=== PATIENT | male | born 1960 | race Caucasian/White ===

== ENCOUNTER 2017-08-06 03:14 | Emergency (ER) | payer OTHER ==
[~2017-08-06] VITALS: Ht 180.3 cm; Wt 35.4 kg
[2017-08-06] MEDS ORDERED: ATRIPLA TABLET1 EACH (03:19)
== END 2017-08-06 12:38 | disposition home or self-care (01) ==
LOC: ER 03:14 → CPU-OBS 03:18 → ER 03:18
DX: R07.89 Other chest pain (principal); R25.1 Tremor, unspecified
CPT/HCPCS: G0378; G0379; 93005; 70450

== ENCOUNTER 2018-03-12 09:15 | Outpatient (CLI) | payer OTHER ==
[~2018-03-12 09:15] MED LIST: ATRIPLA TABLET1 EACH
== END 2018-03-12 09:36 | disposition home or self-care (01) ==
LOC: NUCLEAR 09:15
DX: R07.89 Other chest pain (principal); I44.7 Left bundle-branch block, unspecified

== ENCOUNTER 2019-01-07 06:00 | Day surgery (SDC) | payer OTHER ==
[~2019-01-07 06:00] MED LIST changes: +CRESTOR20 MG
== END 2019-01-07 13:50 | disposition home or self-care (01) ==
LOC: CIR.AMB 06:00
DX: K40.90 Unilateral inguinal hernia, without obstruction or gangrene, not specified as recurrent (principal)

== ENCOUNTER → 2019-04-30 | Outpatient (CLI) | payer OTHER | END | disposition home or self-care (01) | LOC: NUCLEAR 08:00 | DX: I11.9 Hypertensive heart disease without heart failure (principal) ==